=== PATIENT | female | born 1935 | race Caucasian/White ===

== ENCOUNTER → 2016-05-24 | Outpatient (CLI) | payer BC ==
[~2016-05-24] MED LIST: ALL100 PO; ASPCH81; ATEN-173 PO; GABA-112 PO; HYDR-3419 PO; HYDR-5688 PO; HYDR12.55 PO; LEVO75TA PO; LEVO88TA3 PO; LSX20 PO; MULT-506 PO; PRAV20TA PO; TEMA30CA4 PO
[2016-05-24 17:35] LABS: HEMATOCRIT 37.2 % (37-47); MEAN CELL VOLUME 94.4 fL (80-100); MEAN CORPUSCULAR HEMOGLOBIN 30.5 pg (25-34); MEAN CORPUSCULAR HGB CONC 32.3 g/dl (32-36); MEAN PLATELET VOLUME 9.6 fL (7.4-10.4); PLATELET COUNT 269 K/uL (130-400); RED BLOOD COUNT 3.94 M/uL (4.2-5.4); WHITE BLOOD COUNT 13.67 K/uL (4.8-10.8)
[2016-05-24 18:07] LABS: BLOOD UREA NITROGEN 38 mg/dl (7-18); BUN/CREATININE RATIO 21.3 (10-20); CALCIUM 10.9 mg/dl (8.5-10.1); CARBON DIOXIDE 27 mmol/L (21-32); CHLORIDE 104 mmol/L (98-107); GLUCOSE 96 mg/dl (70-99); MAGNESIUM 1.8 mg/dl (1.8-2.4); POTASSIUM 4.3 mmol/L (3.5-5.1); SODIUM 141 mmol/L (136-145)
[2016-05-24 18:16] LABS: BASO % 0.3 %; BASO ABS # 0.04 K/uL (0-0.2); COMPLETE YES; EOS % 1.6 %; IG% 0.2 %; LYMPH % 49.5 %; LYMPH ABS # 6.76 K/uL (1.2-3.4); MONO % 5.9 %; NEUT % 42.5 %
== END | disposition home or self-care (01) ==
LOC: C.LAB1850 16:54
PROVIDERS: ATTEND Internal Medicine
DX: E78.00 Pure hypercholesterolemia, unspecified (principal)

== ENCOUNTER → 2016-09-23 | Outpatient (CLI) | payer BC ==
[~2016-09-23] MED LIST changes: -LEVO75TA PO; +MAGN1CAP2
[2016-09-23 15:41] LABS: BASO % 0.4 %; BASO ABS # 0.05 K/uL (0-0.2); COMPLETE YES; HEMATOCRIT 38.8 % (37-47); IG% 0.2 %; LYMPH % 35.3 %; LYMPH ABS # 4.24 K/uL (1.2-3.4); MEAN CELL VOLUME 93.9 fL (80-100); MEAN CORPUSCULAR HEMOGLOBIN 29.1 pg (25-34); MEAN CORPUSCULAR HGB CONC 30.9 g/dl (32-36); MEAN PLATELET VOLUME 9.3 fL (7.4-10.4); MONO % 6.5 %; NEUT % 54.6 %; PLATELET COUNT 319 K/uL (130-400); RED BLOOD COUNT 4.13 M/uL (4.2-5.4); WHITE BLOOD COUNT 12.02 K/uL (4.8-10.8)
[2016-09-23 16:01] LABS: BLOOD UREA NITROGEN 33 mg/dl (7-18); CARBON DIOXIDE 30 mmol/L (21-32); CHLORIDE 104 mmol/L (98-107); GLUCOSE 133 mg/dl (70-99); MAGNESIUM 1.7 mg/dl (1.8-2.4); POTASSIUM 4.1 mmol/L (3.5-5.1); SODIUM 141 mmol/L (136-145)
[2016-09-23 16:05] LABS: CALCIUM 11.3 mg/dl (8.5-10.1)
== END | disposition home or self-care (01) ==
LOC: C.LAB1850 14:15
PROVIDERS: ATTEND Internal Medicine
DX: D72.820 Lymphocytosis (symptomatic) (principal)

== ENCOUNTER → 2017-01-11 | Outpatient (CLI) | payer BC ==
[~2017-01-11] MED LIST changes: -HYDR-3419 PO
[2017-01-11 15:34] LABS: BASO % 0.4 %; BASO ABS # 0.05 K/uL (0-0.2); COMPLETE YES; HEMATOCRIT 35.4 % (37-47); IG% 0.4 %; LYMPH % 31.7 %; LYMPH ABS # 4.53 K/uL (1.2-3.4); MEAN CELL VOLUME 95.4 fL (80-100); MEAN CORPUSCULAR HEMOGLOBIN 30.2 pg (25-34); MEAN CORPUSCULAR HGB CONC 31.6 g/dl (32-36); MEAN PLATELET VOLUME 9.4 fL (7.4-10.4); MONO % 6.2 %; NEUT % 56.3 %; PLATELET COUNT 349 K/uL (130-400); RED BLOOD COUNT 3.71 M/uL (4.2-5.4); WHITE BLOOD COUNT 14.28 K/uL (4.8-10.8)
[2017-01-11 15:56] LABS: BLOOD UREA NITROGEN 22 mg/dl (7-18); BUN/CREATININE RATIO 12.8 (10-20); CALCIUM 10.8 mg/dl (8.5-10.1); CARBON DIOXIDE 31 mmol/L (21-32); CHLORIDE 104 mmol/L (98-107); GLUCOSE 114 mg/dl (70-99); MAGNESIUM 1.4 mg/dl (1.8-2.4); SODIUM 142 mmol/L (136-145)
== END | disposition home or self-care (01) ==
LOC: C.LAB1850 14:40
PROVIDERS: ATTEND Physician Assistant
DX: N18.9 Chronic kidney disease, unspecified (principal)

== ENCOUNTER → 2017-04-14 | Outpatient (CLI) | payer BC ==
[~2017-04-14] MED LIST changes: -HYDR12.55 PO
[2017-04-14 16:22] LABS: BASO % 0.4 %; BASO ABS # 0.04 K/uL (0-0.2); COMPLETE YES; EOS % 2.2 %; HEMATOCRIT 35.9 % (37-47); IG% 0.3 %; LYMPH % 30.4 %; LYMPH ABS # 3.35 K/uL (1.2-3.4); MEAN CORPUSCULAR HEMOGLOBIN 30.2 pg (25-34); MEAN CORPUSCULAR HGB CONC 31.5 g/dl (32-36); MEAN PLATELET VOLUME 9.4 fL (7.4-10.4); MONO % 6.9 %; NEUT % 59.8 %; PLATELET COUNT 318 K/uL (130-400); RED BLOOD COUNT 3.74 M/uL (4.2-5.4); WHITE BLOOD COUNT 11.03 K/uL (4.8-10.8)
[2017-04-14 16:35] LABS: BLOOD UREA NITROGEN 31 mg/dl (7-18); BUN/CREATININE RATIO 17.6 (10-20); CALCIUM 10.9 mg/dl (8.5-10.1); CARBON DIOXIDE 32 mmol/L (21-32); CHLORIDE 104 mmol/L (98-107); CREATININE 1.74 mg/dl (0.60-1.20); GLUCOSE 166 mg/dl (70-99); MAGNESIUM 1.7 mg/dl (1.8-2.4); POTASSIUM 3.7 mmol/L (3.5-5.1); SODIUM 139 mmol/L (136-145)
[2017-04-15 06:22] LABS: ESTIMATED AVERAGE GLUCOSE 105 mg/dl; HA1C FLAG Normal (Normal)
--- NOTE | 2017-04-21 10:22 | CODING QUERY MEDICAL NECESSITY ---
SUPPORTING DIAGNOSIS NEEDED Dr. Landaverde, A supporting diagnosis is required for the test/procedure performed on this patient in order for us to be reimbursed by the patient's insurance. Please provide a supporting diagnosis for the following test/procedure listed below next to the test name along with your signature. *If there is no additional diagnosis for this patient that would support the following test/procedure please document that below next to the test/procedure. Test(s)/Procedure(s) that require a supporting diagnosis: * [id number] GLYCATED HEMOGLOBIN DIAGNOSIS: DATE OF SERVICE: 04/14/17 Provider Signature: Date: Thank you [facility] Information Management Once completed, please kindly fax back to [phone] For questions please call [phone]
== END | disposition home or self-care (01) ==
LOC: C.LAB1850 14:51
PROVIDERS: ATTEND Internal Medicine
DX: E03.9 Hypothyroidism, unspecified (principal); E78.00 Pure hypercholesterolemia, unspecified; E74.39 Other disorders of intestinal carbohydrate absorption

== ENCOUNTER → 2017-12-13 | Outpatient (CLI) | payer BC ==
[~2017-12-13] MED LIST changes: +CRDCD/180 PO; -GABA-112 PO; +HYDR12.56 PO; +LISI-725 PO; -MAGN1CAP2; +MIRT15TA2 PO; +NRN600 PO; +SACC250C11 PO
[2017-12-13 14:33] LABS: BASO % 0.5 %; EOS % 4.9 %; HEMATOCRIT 33.8 % (37-47); HEMOGLOBIN 10.9 g/dL (12.0-16.0); LYMPH % 30.5 %; LYMPH ABS # 3.12 K/uL (1.2-3.4); MEAN CELL VOLUME 90.9 fL (80-100); MEAN CORPUSCULAR HEMOGLOBIN 29.3 pg (25-34); MEAN CORPUSCULAR HGB CONC 32.2 g/dl (32-36); MEAN PLATELET VOLUME 9.5 fL (7.4-10.4); MONO % 5.1 %; MONO ABS # 0.52 K/uL (0.11-0.59); NEUT % 58.7 %; NEUT ABS # 6.02 K/uL (1.4-6.5); PLATELET COUNT 293 K/uL (130-400); RED CELL DISTRIBUTION WIDTH CV 14.4 % (11.5-14.5); RED CELL DISTRIBUTION WIDTH SD 47.6 fL (36.4-46.3); WHITE BLOOD COUNT 10.24 K/uL (4.8-10.8)
[2017-12-13 14:34] LABS: BASO ABS # 0.05 K/uL (0-0.2); IG# 0.03 K/uL (0.00-0.02)
[2017-12-13 15:14] LABS: BLOOD UREA NITROGEN 31 mg/dl (7-18); CARBON DIOXIDE 28 mmol/L (21-32); CREATININE 1.47 mg/dl (0.60-1.20); GLUCOSE 84 mg/dl (70-99); POTASSIUM 4.1 mmol/L (3.5-5.1); SODIUM 135 mmol/L (136-145)
== END | disposition home or self-care (01) ==
LOC: C.LAB1850 13:41
PROVIDERS: ATTEND Internal Medicine
DX: E78.00 Pure hypercholesterolemia, unspecified (principal)

== ENCOUNTER 2020-06-30 20:46 | Inpatient (IN) ==
[2020-06-30 22:37] LABS: Basophils # (auto) 0.03 K/uL (0-0.2); Basophils % (auto) 0.3 %; Eosinophils # (auto) 0.12 K/uL (0-0.5); Hematocrit (blood only) 39.2 % (37-47); Hemoglobin 12.9 g/dL (12.0-16.0); Immature Granulocytes # (auto) 0.03 K/uL (0.00-0.02); Immature Granulocytes % (auto) 0.3 %; Lymphocytes # (auto) 4.62 K/uL (1.2-3.4); Lymphocytes % (auto) 39.6 %; Mean Corpuscular Hemoglobin 29.3 pg (25-34); Mean Corpuscular Hgb Conc 32.9 g/dL (32-36); Mean Corpuscular Volume 89.1 fL (80-100); Mean Platelet Volume 8.9 fL (7.4-10.4); Monocytes # (auto) 0.66 K/uL (0.11-0.59); Monocytes % (auto) 5.7 %; Neutrophils # (auto) 6.22 K/uL (1.4-6.5); Neutrophils % (auto) 53.1 %; Platelet Count 327 K/uL (130-400); RDW Coefficient of Variation 13.9 % (11.5-14.5); RDW Standard Deviation 45.6 fL (36.4-46.3); White Blood Count 11.68 K/uL (4.8-10.8)
[2020-06-30 22:56] LABS: BUN Creatinine Ratio 14.3 (10-20); Calcium 13.8 mg/dl (8.5-10.1); Creatinine Clr Calc Pharmacy 21.2 ml/min; Est GFR (African American) 29.4; Est GFR (Non-African American) 25.4; Potassium 3.5 mmol/L (3.5-5.1)
[2020-06-30 22:58] LABS: Bilirubin,Total 0.7 mg/dl (0.2-1); Globulin 3.9 gm/dl (2.5-4.0); Total Protein 7.9 gm/dl (6.4-8.2)
--- NOTE | 2020-07-01 03:12 | Emergency Department Note ---
ED Visit Note Physician Evaluation Note: I have personally evaluated and examined this patient. I agree with assessment and plan of Daisy Garcia PA-C. 85 yr old female worsening abdominal pains and nausea. Has been followed for hyperCa recently though today much increased. Mild hypoxia while sleeping, likely DAVID. Hospitalist in to evaluate and manage further. Dylan Franklin MD
[2020-07-01] MEDS ORDERED: TEMAZEPAM 15 MG CAPSULE PO STA (03:33)
[2020-07-01 04:23] LABS: Magnesium 1.8 mg/dl (1.8-2.4); Thyroid Stimulating Hormone 6.22 uIu/ml (0.300-4.500)
[2020-07-01] MEDS ORDERED: PAMIDRONATE DISODIUM 60 MG in SODIUM CHLORIDE 0.9% 1000ML 1,000 ML IV STA (05:44)
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
[2020-07-01] MEDS ORDERED: METOPROLOL TARTRATE 1 MG/ML VIAL IV PRN (06:26)
--- NOTE | 2020-07-01 08:49 | CT Scan Report ---
ABDOMEN AND PELVIS CT WITHOUT CONTRAST CT DOSE: 314.20 mGy.cm HISTORY: lower abdominal pain, nausea TECHNIQUE: Multiaxial CT images of the abdomen and pelvis were performed without contrast. A dose lo wering technique was utilized adhering to the principles of ALARA. COMPARISON STUDY: Abdomen and pelvis CT 04/28/2020. FINDINGS: Visualized portions of the lower chest demonstrate posttraumatic/postsurgical findings with in the right chest wall. No pneumatosis, free air or portal venous gas is present. Evaluation of the abdomen and pelvis is suboptimal on this unenhanced examination. The previously described lesion with in the upper pole of the right kidney measures above water attenuation. This is suboptimally assessed on this unenhanced exam but demonstrated enhancement on prior contrast enhanced CT of October 31, 2019. This lesion measures 1.8 x 1.4 cm.. A 1 cm hypodense lesion within lower pole of the left kidney like ly reflects a cyst. There is no hydronephrosis. Unenhanced images of liver, spleen, adrenal glands an d pancreas are unremarkable with exception of pancreatic glandular atrophy. There are gallstones with in the gallbladder without evidence for acute cholecystitis. Postoperative findings from a partial co lectomy are noted. There is a large amount stool within remaining portions of the colon. There is min imal stool within the rectum. There is no evidence for a bowel obstruction. There is no lymphadenopat hy. There is no ascites. Moderate dextroscoliosis of the lower thoracic and lumbar spine is noted. No acute fracture or suspicious lesion is identified within visualized skeletal structures. Best seen i mage 352 there is an 8 mm nodule within the left posterior bladder. This concerning for a urothelial lesion. IMPRESSION: 1. Redemonstration of a 1.8 cm lesion within the upper pole of the right kidney. This likely reflects a renal cell carcinoma. Although suboptimally assessed on this unenhanced exam, this demonstrated en hancement on prior contrast enhanced CT. 2. Status post partial colectomy. No bowel obstruction. Large amount of stool within remaining portio ns of the colon. 3. Cholelithiasis. No evidence for acute cholecystitis. 4. There is an 8 mm nodule within the left posterior bladder abutting the bladder wall. This is fermín rning for a urothelial malignancy. Urology consultation recommended. ACT 112: Positive. There are findings on this exam that require communication between the performing entity and the patient following Patient Test Result Information Act ([place] Act 112) guidelines. Electronically signed by: Grayson Prater M.D. 07/01/2020 8:48 AM
[2020-07-01] MEDS ORDERED: POLYETHYLENE (MIRALAX) 17 GM PACK PO PRN (10:01)
[2020-07-01] MEDS: SODIUM CHLORIDE 0.9% 1000ML 1,000 ML IV SCH ×2 (10:46→20:44)
[2020-07-01] MEDS: TAPENTADOL HCL ER 50 MG TABCR PO SCH ×2 (10:46→22:33)
--- NOTE | 2020-07-01 10:49 | Electrocardiogram Report ---
Test Reason : Blood Pressure : / mmHG Vent. Rate : 098 BPM Atrial Rate : 098 BPM P-R Int : 198 ms QRS Dur : 134 ms QT Int : 388 ms P-R-T Axes : 078 -52 081 degrees QTc Int : 495 ms Poor data quality, interpretation may be adversely affected Normal sinus rhythm Right bundle branch block Left anterior fascicular block Left ventricular hypertrophy with repolarization abnormality Abnormal ECG When compared with ECG of 22-MAR-2008 15:47, TN interval has decreased Vent. rate has increased BY 39 BPM (RBBB and left anterior fascicular block) is now Present Confirmed by John Paul Chavez ([id number]) on 07/01/2020 10:49:26 AM Referred By: REFERRED SELF Confirmed By:John Paul Chavez
[2020-07-01] MEDS: ENOXAPARIN INJ 30 MG/0.3 ML SYR SQ SCH (12:17)
[2020-07-01] MEDS: LEVOTHYROXINE SODIUM 75 MCG TABLET PO SCH (12:18)
[2020-07-01] MEDS: ADVANCED PROBIOTIC 1250 MG CAPSULE PO SCH ×2 (12:18→20:39)
[2020-07-01] MEDS: ACETAMINOPHEN 325 MG TAB PO PRN (12:18)
[2020-07-01 12:36] LABS: BUN Creatinine Ratio 13.4 (10-20); Calcium 11.7 mg/dl (8.5-10.1); Creatinine Clr Calc Pharmacy 21.4 ml/min; Est GFR (African American) 29.8; Est GFR (Non-African American) 25.8; Potassium 3.8 mmol/L (3.5-5.1)
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
[2020-07-01] MEDS: ASPIRIN 81 MG ECTAB PO SCH (20:38)
[2020-07-01] MEDS: GABAPENTIN 600 MG TAB PO SCH (20:38)
[2020-07-01] MEDS: PRAVASTATIN SOD 20 MG TAB PO SCH (20:39)
[2020-07-01] MEDS: TEMAZEPAM 15 MG CAPSULE PO SCH (20:43)
[2020-07-02] MEDS: ACETAMINOPHEN 325 MG TAB PO PRN (00:36)
[2020-07-02] MEDS: LEVOTHYROXINE SODIUM 75 MCG TABLET PO SCH (06:29)
[2020-07-02 07:15] LABS: Hematocrit (blood only) 28.1 % (37-47); Hemoglobin 9.1 g/dL (12.0-16.0); Mean Corpuscular Hemoglobin 29.2 pg (25-34); Mean Corpuscular Hgb Conc 32.4 g/dL (32-36); Mean Corpuscular Volume 90.1 fL (80-100); Mean Platelet Volume 8.9 fL (7.4-10.4); Platelet Count 234 K/uL (130-400); RDW Coefficient of Variation 14.7 % (11.5-14.5); RDW Standard Deviation 48.2 fL (36.4-46.3); Red Blood Count 3.12 M/uL (4.2-5.4); White Blood Count 6.17 K/uL (4.8-10.8)
[2020-07-02 07:29] LABS: Albumin Level 2.6 gm/dl (3.4-5.0); BUN Creatinine Ratio 15.7 (10-20); Creatinine Clr Calc Pharmacy 22.3 ml/min; Est GFR (African American) 31.3; Magnesium 1.4 mg/dl (1.8-2.4)
[2020-07-02] MEDS: ADVANCED PROBIOTIC 1250 MG CAPSULE PO SCH ×2 (07:35→20:19)
[2020-07-02 07:39] LABS: Bilirubin,Total 0.3 mg/dl (0.2-1); Globulin 2.6 gm/dl (2.5-4.0); Phosphorus 2.2 mg/dl (2.5-4.9); Total Protein 5.2 gm/dl (6.4-8.2)
[2020-07-02] MEDS: SODIUM CHLORIDE 0.9% 1000ML 1,000 ML IV SCH (08:00)
[2020-07-02 08:36] LABS: Basophils # (auto) 0.03 K/uL (0-0.2); Basophils % (auto) 0.5 %; Eosinophils # (auto) 0.25 K/uL (0-0.5); Eosinophils % (auto) 4.1 %; Immature Granulocytes # (auto) 0.01 K/uL (0.00-0.02); Immature Granulocytes % (auto) 0.2 %; Lymphocytes # (auto) 2.61 K/uL (1.2-3.4); Lymphocytes % (auto) 42.3 %; Monocytes # (auto) 0.51 K/uL (0.11-0.59); Monocytes % (auto) 8.3 %; Neutrophils # (auto) 2.76 K/uL (1.4-6.5); Neutrophils % (auto) 44.6 %
[2020-07-02] MEDS: POLYETHYLENE (MIRALAX) 17 GM PACK PO SCH ×2 (09:18→20:19)
[2020-07-02] MEDS: ENOXAPARIN INJ 30 MG/0.3 ML SYR SQ SCH (10:38)
[2020-07-02] MEDS: TAPENTADOL HCL ER 50 MG TABCR PO SCH ×2 (10:38→20:18)
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
[2020-07-02 12:35] LABS: Appearance Urine Clear (Clear); Bacteria Urine Automated Negative (Negative); Bilirubin Urine Negative (Negative); Blood Urine Negative (Negative); Color Urine Yellow; Epithelial Cell Urine Auto >30 /lpf (0-5); Glucose Urine UA Negative (Negative); Ketones Urine Negative (Negative); Leukocyte Esterase Urine 1+ (Negative); Nitrite Urine Negative (Negative); Protein Urine Negative (Negative); RBC Urine Automated 0-4 /hpf (0-4); Specific Gravity Urine 1.009 (1.000-1.030); Urobilinogen Urine Negative (Negative)
--- NOTE | 2020-07-02 16:14 | Electrocardiogram Report ---
Test Reason : Blood Pressure : / mmHG Vent. Rate : 058 BPM Atrial Rate : 058 BPM P-R Int : 184 ms QRS Dur : 138 ms QT Int : 450 ms P-R-T Axes : 063 -43 -27 degrees QTc Int : 441 ms Sinus bradycardia Left axis deviation Right bundle branch block Minimal voltage criteria for LVH, may be normal variant T-wave inversion in Inferior leads Abnormal ECG When compared with ECG of 30-JUN-2020 20:53, Vent. rate has decreased BY 40 BPM T wave inversion now evident in Inferior leads QT has shortened Confirmed by John Paul Chavez ([id number]) on 07/02/2020 4:14:28 PM Referred By: REFERRED SELF Confirmed By:John Paul Chavez
[2020-07-02] MEDS: TEMAZEPAM 15 MG CAPSULE PO SCH (20:19)
[2020-07-02] MEDS: ASPIRIN 81 MG ECTAB PO SCH (20:19)
[2020-07-02] MEDS: GABAPENTIN 600 MG TAB PO SCH (20:19)
[2020-07-02] MEDS: PRAVASTATIN SOD 20 MG TAB PO SCH (20:20)
[2020-07-03] MEDS: LEVOTHYROXINE SODIUM 75 MCG TABLET PO SCH (05:48)
[2020-07-03 06:50] LABS: Basophils # (auto) 0.02 K/uL (0-0.2); Basophils % (auto) 0.3 %; Eosinophils # (auto) 0.28 K/uL (0-0.5); Eosinophils % (auto) 3.7 %; Hematocrit (blood only) 30.8 % (37-47); Hemoglobin 9.9 g/dL (12.0-16.0); Immature Granulocytes # (auto) 0.01 K/uL (0.00-0.02); Immature Granulocytes % (auto) 0.1 %; Lymphocytes # (auto) 3.37 K/uL (1.2-3.4); Mean Corpuscular Hemoglobin 28.6 pg (25-34); Mean Corpuscular Hgb Conc 32.1 g/dL (32-36); Mean Platelet Volume 8.8 fL (7.4-10.4); Monocytes # (auto) 0.66 K/uL (0.11-0.59); Monocytes % (auto) 8.6 %; Neutrophils # (auto) 3.32 K/uL (1.4-6.5); Neutrophils % (auto) 43.3 %; Platelet Count 257 K/uL (130-400); RDW Coefficient of Variation 14.4 % (11.5-14.5); Red Blood Count 3.46 M/uL (4.2-5.4); White Blood Count 7.66 K/uL (4.8-10.8)
[2020-07-03 07:24] LABS: Albumin Level 2.9 gm/dl (3.4-5.0); Calcium 10.4 mg/dl (8.5-10.1); Creatinine Clr Calc Pharmacy 24.9 ml/min; Est GFR (African American) 35.8; Est GFR (Non-African American) 30.9; Magnesium 1.4 mg/dl (1.8-2.4)
[2020-07-03 07:27] LABS: Bilirubin,Total 0.3 mg/dl (0.2-1); Phosphorus 1.8 mg/dl (2.5-4.9); Total Protein 5.9 gm/dl (6.4-8.2)
[2020-07-03] MEDS: ADVANCED PROBIOTIC 1250 MG CAPSULE PO SCH ×2 (08:11→20:25)
[2020-07-03] MEDS: POLYETHYLENE (MIRALAX) 17 GM PACK PO SCH ×2 (08:12→08:13)
[2020-07-03] MEDS: TAPENTADOL HCL ER 50 MG TABCR PO SCH ×2 (08:40→20:24)
[2020-07-03] MEDS: ENOXAPARIN INJ 30 MG/0.3 ML SYR SQ SCH (11:35)
[2020-07-03] MEDS: DICLOFENAC SOD 1% GEL 100 GM TUBE EXT PRN ×2 (11:35→22:53)
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
[2020-07-03] MEDS: ACETAMINOPHEN 325 MG TAB PO PRN ×2 (15:33→23:29)
--- NOTE | 2020-07-03 16:39 | Electrocardiogram Report ---
Test Reason : Blood Pressure : / mmHG Vent. Rate : 066 BPM Atrial Rate : 066 BPM P-R Int : 180 ms QRS Dur : 134 ms QT Int : 430 ms P-R-T Axes : 086 -55 -32 degrees QTc Int : 450 ms Sinus rhythm with occasional Premature ventricular complexes Right bundle branch block Left anterior fascicular block Abnormal ECG When compared with ECG of 02-JUL-2020 07:18, Premature ventricular complexes are now Present Confirmed by John Paul Chavez ([id number]) on 07/03/2020 4:38:35 PM Referred By: REFERRED SELF Confirmed By:John Paul Chavez
[2020-07-03] MEDS ORDERED: diphenhydrAMINE Capsule 25 MG CAP PO ONE (20:09)
[2020-07-03] MEDS ORDERED: ONDANSETRON INJ 2 MG/ML 2 ML VIAL IV STA (20:09)
[2020-07-03] MEDS: TEMAZEPAM 15 MG CAPSULE PO SCH (20:23)
[2020-07-03] MEDS: ASPIRIN 81 MG ECTAB PO SCH (20:25)
[2020-07-03] MEDS: PRAVASTATIN SOD 20 MG TAB PO SCH (20:25)
[2020-07-03] MEDS: GABAPENTIN 600 MG TAB PO SCH (20:25)
[2020-07-04] MEDS: LEVOTHYROXINE SODIUM 75 MCG TABLET PO SCH (05:59)
[2020-07-04 06:50] LABS: Hematocrit (blood only) 30.6 % (37-47); Hemoglobin 9.9 g/dL (12.0-16.0); Mean Corpuscular Hemoglobin 28.8 pg (25-34); Mean Corpuscular Hgb Conc 32.4 g/dL (32-36); Mean Platelet Volume 8.6 fL (7.4-10.4); Platelet Count 229 K/uL (130-400); RDW Coefficient of Variation 14.2 % (11.5-14.5); RDW Standard Deviation 46.1 fL (36.4-46.3); Red Blood Count 3.44 M/uL (4.2-5.4); White Blood Count 6.69 K/uL (4.8-10.8)
[2020-07-04] MEDS: DICLOFENAC SOD 1% GEL 100 GM TUBE EXT PRN (07:16)
[2020-07-04] MEDS: ADVANCED PROBIOTIC 1250 MG CAPSULE PO SCH (07:17)
[2020-07-04 07:27] LABS: Albumin Level 2.8 gm/dl (3.4-5.0); BUN Creatinine Ratio 13.7 (10-20); Calcium 9.7 mg/dl (8.5-10.1); Creatinine Clr Calc Pharmacy 22.3 ml/min; Est GFR (African American) 31.3; Magnesium 1.5 mg/dl (1.8-2.4); Potassium 3.6 mmol/L (3.5-5.1)
[2020-07-04 07:32] LABS: Bilirubin,Total 0.3 mg/dl (0.2-1); Globulin 2.9 gm/dl (2.5-4.0); Phosphorus 2.1 mg/dl (2.5-4.9); Total Protein 5.7 gm/dl (6.4-8.2)
[2020-07-04 08:02] LABS: Basophils # (auto) 0.03 K/uL (0-0.2); Basophils % (auto) 0.4 %; Eosinophils # (auto) 0.19 K/uL (0-0.5); Eosinophils % (auto) 2.8 %; Immature Granulocytes # (auto) 0.01 K/uL (0.00-0.02); Immature Granulocytes % (auto) 0.1 %; Lymphocytes # (auto) 3.38 K/uL (1.2-3.4); Lymphocytes % (auto) 50.5 %; Monocytes # (auto) 0.58 K/uL (0.11-0.59); Monocytes % (auto) 8.7 %; Neutrophils % (auto) 37.5 %
[2020-07-04] MEDS: TAPENTADOL HCL ER 50 MG TABCR PO SCH (08:32)
[2020-07-04] MEDS: POLYETHYLENE (MIRALAX) 17 GM PACK PO SCH (08:33)
[2020-07-04] MEDS: MAGNESIUM SULFATE / D5W 1 GM/100 ML BAG IV SCH ×2 (09:09→11:12)
[2020-07-04] MEDS: ENOXAPARIN INJ 30 MG/0.3 ML SYR SQ SCH (11:12)
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
--- NOTE | 2020-07-11 07:01 | Coding Query ---
PRESSURE ULCER DOCUMENTATION To promote full compliance with coding requirements relating to patient care, physician participation is requested in all cases of acid maker uncertainty. Please assist us with the question(s) below: Please specify the known or suspected type by placing an "X" within the parenthesis (x). A pressure ulcer of the MIDBACK (several ulcers) were documented , If possible, please check the box that provides the specific stage of the pressure ulcer ( ) Stage I (x ) Stage II ( ) Stage III ( ) Stage IV ( ) Unstageable ( ) Unable to determine Was the pressure ulcer present on admission? Please check the appropriate box for the pressure ulcer: (x ) Present on admission ( ) Not present on admission ( ) Unable to be clinically determined Thank you JAYLEN Goldman [facility]
== END 2020-07-04 14:28 | DRG 687 ==
LOC: ED 20:46 → SUATTDRO 07-01 06:08 → 2N 07-01 06:08

== ENCOUNTER 2023-04-15 17:22 | Inpatient (IN) ==
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
[2023-04-15] MEDS ORDERED: CYCLOBENZAPRINE HCL 10 MG TAB PO STA (18:06)
--- NOTE | 2023-04-15 18:27 | XRay Report ---
XR shoulder RT min 2V routine CLINICAL HISTORY: With Y view - pain with ? Dislocation TECHNIQUE: 3 views of the right shoulder were obtained. Comparison: None available at the time of this dictation. FINDINGS: Exam is limited by overlying radiodensity. Anterior shoulder dislocation is seen. Degenerative change s are seen in the glenohumeral joint. The overlying soft tissues are unremarkable. Old healed rib fra ctures with orthopedic hardware noted including displaced screws. IMPRESSION: Findings are compatible with anterior shoulder dislocation. ACT 112: Negative or not required by law. Electronically signed by: Pedro Vance M.D. 04/15/2023 6:26 PM
[2023-04-15] MEDS ORDERED: fentaNYL citrate PF 100 MCG/2 ML VIAL IV STA ×3 (18:51→19:29)
--- NOTE | 2023-04-15 19:57 | Emergency Department Note ---
ED Visit Note Physician Evaluation Note: Patient was seen in conjunction with the midlevel provider. Please see the midlevel provider note for full details of the patient's visit. I have personally evaluated and examined this patient. Patient presented to the ED with a dislocation of the right shoulder. This appears anterior on review of x-ray imaging. This has been a chronic issue for the patient. I was asked to assist with the dislocation reduction following several attempts by the physician legal administrative assistant, on my evaluation the patient was given a dose of IV fentanyl and gentle external rotation of the right upper extremity was applied with adduction of the right upper extremity with successful reduction of the dislocation. X-ray imaging confirms anatomic alignment status post reduction attempt by myself per my interpretation of the x-ray. Patient states her pain is much improved and range of motion is improved and pain-free at this point. Patient was placed in an arm sling, she does have issues with recurrent dislocations and unfortunately I do not feel that she is able to again utilize her walker with her right upper extremity without being at risk for recurrent dislocation. This is primarily how she ambulates at her assisted living facility and following discussion with family decision was made to admit the patient to the medicine service for PT services and possible placement. Please see the physician legal administrative assistant note for full details. I agree with assessment and plan of HALEY Campos, DO Right shoulder dislocation reduction: -Verbal consent was obtained from the patient -Patient was given a 25 mcg dose of fentanyl via IV -With the right upper extremity adducted to the patient's body in a seated position gentle external rotation was applied with the elbow bent to 90 degrees with satisfactory reduction of the anterior shoulder dislocation -Patient's pain was improved following this procedure, x-ray imaging per my interpretation confirms anatomic alignment of the humeral head -Patient was placed in an arm sling -Patient tolerated the procedure well .
[2023-04-15] MEDS ORDERED: SODIUM CHLORIDE 0.9% 500 ML IV ONE (20:40)
[2023-04-15 21:11] LABS: Basophils # (auto) 0.06 K/uL (0.00-0.20); Basophils % (auto) 0.4 %; Eosinophils # (auto) 0.07 K/uL (0.00-0.50); Eosinophils % (auto) 0.5 %; Hematocrit (blood only) 35.6 % (37.0-47.0); Hemoglobin 11.5 g/dl (12.0-16.0); Immature Granulocytes # (auto) 0.07 K/uL (0.01-0.20); Immature Granulocytes % (auto) 0.5 %; Lymphocytes # (auto) 4.13 K/uL (1.20-3.40); Lymphocytes % (auto) 28.1 %; Mean Corpuscular Hemoglobin 28.6 pg (25.0-34.0); Mean Corpuscular Hgb Conc 32.3 g/dL (32.0-36.0); Mean Corpuscular Volume 88.6 fL (80.0-100.0); Mean Platelet Volume 8.8 fL (9.4-12.4); Monocytes # (auto) 1.32 K/uL (0.11-0.59); Neutrophils # (auto) 9.04 K/uL (1.40-6.50); Neutrophils % (auto) 61.5 %; Platelet Count 370 K/uL (130-400); RDW Coefficient of Variation 14.4 % (11.5-14.5); RDW Standard Deviation 46.5 fL (36.4-46.3); Red Blood Count 4.02 M/uL (4.20-5.40); White Blood Count 14.69 K/ul (4.8-10.8)
[2023-04-15 21:28] LABS: Alanine Aminotransferase 6 U/L (7-52); Albumin Globulin Ratio 1.3 (0.9-2); Alkaline Phosphatase 121 U/L (34-104); Anion Gap 9 (3-11); Aspartate Aminotransferase 15 U/L (13-39); Bilirubin,Total 0.6 mg/dl (0.2-1.0); Blood Urea Nitrogen 31 mg/dl (6-23); Calcium 9.7 mg/dl (8.6-10.3); Carbon Dioxide 30 mmol/L (21-32); Chloride 99 mmol/L (98-107); Est GFR (African American) 43.7 ml/min; Est GFR (Non-African American) 37.7 ml/min; Globulin 3.1 gm/dl (2.5-4.0); Glucose 97 mg/dl (70-99(Fasting)); Sodium 138 mmol/L (136-145); Total Protein 7.1 gm/dl (6.0-8.3)
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
[2023-04-15] MEDS ORDERED: NALOXONE HCL 0.4 MG/1 ML VIAL/CARP IV PRN (23:15)
[2023-04-15] MEDS ORDERED: POLYETHYLENE (MIRALAX) 17 GM PACK PO PRN (23:15)
[2023-04-15] MEDS ORDERED: ONDANSETRON INJ 2 MG/ML 2 ML VIAL IV PRN (23:15)
[2023-04-15] MEDS ORDERED: Patient's HEIGHT &/or WEIGHT Needed ONE (23:30)
[2023-04-15] MEDS ORDERED: ARTIFICIAL TEARS OP PRN (23:31)
[2023-04-16] MEDS: TAPENTADOL HCL ER 50 MG TABCR PO SCH ×3 (00:05→20:36)
[2023-04-16] MEDS ORDERED: TEMAZEPAM 15 MG CAPSULE PO ONE (00:06)
[2023-04-16] MEDS ORDERED: GABAPENTIN 600 MG TAB PO STA (00:06)
[2023-04-16] MEDS: LEVOTHYROXINE SODIUM 112 MCG TABLET PO SCH (05:32)
--- NOTE | 2023-04-16 07:55 | Hospitalist Progress Note ---
Date of Service April 16, 2023 Assessment & Plan (1) Anterior dislocation of right shoulder: (2) Ambulatory dysfunction: (3) Rotator cuff arthropathy of left shoulder: (4) Rotator cuff arthropathy of right shoulder: (5) Depression: (6) CKD (chronic kidney disease): (7) Peripheral neuropathy: (8) Hypertension: (9) Foot drop, right: Plan 87-year-old female with a past medical history including myofascial pain, rotator cuff arthropathy of both shoulders, anxiety, depression, SI joint pain, CKD, hyperparathyroidism, hypercholesterolemia, hypothyroidism, right foot drop with use of brace, chronic need for walker, and hypertension presenting with right anterior shoulder dislocation. # Anterior dislocation of right shoulder/bilateral rotator cuff arthropathy/chronic right foot drop with use of brace/severe peripheral neuropathy: Anterior shoulder dislocation s/p reduction in ED Continue sling Patient was not accepted back to her current living facility due to inability to walk with the required use of a walker due to her right arm being in a sling PT/OT assessment, will likely need inpatient rehab Acetaminophen 650 mg by mouth every 6 hours as needed for mild pain or fever Continue gabapentin 400 mg in the morning and 600 mg at bedtime Continue Nucynta ER 100 mg p.o. every 12 hours #CKD: Baseline creatinine has been 1.5-1.9, creatinine on admission 1.29 Follow serial laboratories #HLD: Continue statin #Hypothyroidism: Continue levothyroxine #Hyperparathyroidism: Continue Cinacalcet #Depression/insomnia: Continue mirtazapine and temazepam Med/Surg FEN: DM2 VTE ppx: SCDs Admission and Anticipated Discharge Date Admission Date: April 15, 2023 Supervising Physician Co-Signing Physician Notes I personally examined the patient and verified all madrid points of history and exam, discussed case, and agree with decision making with Dr Felder Shoulder pain under control now. Notes that she feels she will likely have to go somewhere to do rehab given that her personal care will be very unlikely to take care of her in her current state. Case management aware. Vitals noted, in general she is awake and alert pleasant no distress. HEENT normocephalic atraumatic mucous membranes moist. Breathing unlabored no accessory muscle use good effort. Arm in a sling. No focal neurodeficits. Right shoulder dislocationreduced by ER. PT/OT eval and treat, I wonder if there would be any kind of bracing that might help reduce risk of recurrent dislocation after she is healed Weakness/ambulatory dysfunctionPT/OT eval and treathighly likely to not be able to return immediately to personal care without doing some rehab first. DVT proph - ambulation Subjective 87-year-old female with a past medical history including myofascial pain, rotator cuff arthropathy of both shoulders, anxiety, depression, SI joint pain, CKD, hyperparathyroidism, hypercholesterolemia, hypothyroidism, right foot drop with use of brace, chronic need for walker, and hypertension presenting with right anterior shoulder dislocation. Patient evaluated at bedside this morning, notes that she has had minimal pain since her shoulder was reduced in the ED. Patient voices understanding that, due to impaired mobility secondary to shoulder dislocation, she will need to be placed at a different facility. Also states that she has had multiple right shoulder dislocations, is usually able to reduce on her own but could not this time. Review of Systems Review of Systems: as per HPI Physical Exam Physical Exam: General: Alert and oriented. No acute distress Cardiac: Regular rate and rhythm, no murmurs appreciated Respiratory: Lungs clear to auscultation bilaterally, No increased work of breathing Extremities: RUE placed in a sling Results & Data Results & Data Vital Signs (Past 12 Hours) Vital Signs Temp Pulse Resp BP Pulse Ox O2 Del Method 04/16/23 07:14 36.5 C 83 16 92/57 L 94 Room Air 04/15/23 23:17 Room Air 04/15/23 23:17 36.7 C 103 H 18 158/84 H 94 Room Air 04/15/23 21:00 80 16 168/100 H 98 Room Air Resident Activity Tracking Resident Involvement: Resident Care Provided Care Provided: Adult Hospital Medicine (1) Anterior dislocation of right shoulder Encounter type: initial encounter Qualified Code(s): S43.014A - Anterior dislocation of right humerus, initial encounter (6) CKD (chronic kidney disease) Chronic kidney disease stage: stage 3 (moderate) Chronic kidney disease stage 3 subtype: unspecified whether 3a or 3b Qualified Code(s): N18.30 - Chronic kidney disease, stage 3 unspecified (7) Peripheral neuropathy Peripheral neuropathy type: idiopathic neuropathy, unspecified Qualified Code(s): G60.9 - Hereditary and idiopathic neuropathy, unspecified
--- NOTE | 2023-04-16 08:12 | XRay Report ---
XR shoulder RT min 2V routine CLINICAL HISTORY: With Y view - post reduction COMPARISON: Right shoulder radiographs performed earlier today. FINDINGS: Alignment of the right glenohumeral joint is anatomic post reduction. Mild residual anteri or subluxation. Irregularity and apparent bony fragmentation of the acromion is unchanged. Sclerosis and irregularity right humeral head is also unchanged. Multiple old right-sided rib fractures are pre sent. Old right-sided rib fractures are noted with internal fixation hardware. Severe degenerative ch anges within the right shoulder are present. IMPRESSION: 1. Anatomic alignment of the right glenohumeral joint post reduction. 2. Severe degenerative changes within the right shoulder. Irregularity and sclerosis of the right hum eral head which is chronic. 3. Several bone fragments adjacent to the acromion and coracoid process. These are age indeterminate. ACT 112: Negative or not required by law. Electronically signed by: Seth Hunt M.D. 04/16/2023 8:10 AM
[2023-04-16] MEDS: ADVANCED PROBIOTIC 1250 MG CAPSULE PO SCH ×2 (08:18→20:30)
[2023-04-16] MEDS: amLODIPine BESYLATE 5 MG TAB PO SCH (08:19)
[2023-04-16] MEDS: CETIRIZINE HCL 10 MG TABLET PO SCH (08:20)
[2023-04-16] MEDS: FUROSEMIDE 20 MG TAB PO SCH (08:20)
[2023-04-16] MEDS: CINACALCET HCL 30 MG TAB PO SCH (08:20)
[2023-04-16] MEDS: GABAPENTIN 400 MG CAP PO SCH (08:20)
[2023-04-16] MEDS: ACETAMINOPHEN 325 MG TAB PO PRN ×2 (10:13→16:08)
[2023-04-16] MEDS: POLYETHYLENE (MIRALAX) 17 GM PACK PO SCH (12:25)
[2023-04-16] MEDS: MULTIVITAMIN TAB PO SCH (12:26)
--- NOTE | 2023-04-16 17:52 | Billing Data ---
Date of Service April 16, 2023 Coding Level of Care Code 92012 SUB INP/OBS CARE
[2023-04-16] MEDS: GABAPENTIN 600 MG TAB PO SCH (20:30)
[2023-04-16] MEDS: PRAVASTATIN SOD 20 MG TAB PO SCH (20:30)
[2023-04-16] MEDS: MIRTAZAPINE TAB 15 MG TAB PO SCH (20:30)
[2023-04-16] MEDS: TEMAZEPAM 15 MG CAPSULE PO SCH (20:35)
[2023-04-17] MEDS: LEVOTHYROXINE SODIUM 112 MCG TABLET PO SCH (05:36)
[2023-04-17 06:41] LABS: Basophils # (auto) 0.08 K/uL (0.00-0.20); Basophils % (auto) 0.8 %; Eosinophils # (auto) 0.38 K/uL (0.00-0.50); Eosinophils % (auto) 3.8 %; Hematocrit (blood only) 31.2 % (37.0-47.0); Hemoglobin 9.8 g/dl (12.0-16.0); Immature Granulocytes # (auto) 0.05 K/uL (0.01-0.20); Immature Granulocytes % (auto) 0.5 %; Lymphocytes # (auto) 4.03 K/uL (1.20-3.40); Lymphocytes % (auto) 40.2 %; Mean Corpuscular Hemoglobin 28.4 pg (25.0-34.0); Mean Corpuscular Hgb Conc 31.4 g/dL (32.0-36.0); Mean Corpuscular Volume 90.4 fL (80.0-100.0); Mean Platelet Volume 9.1 fL (9.4-12.4); Monocytes # (auto) 1.12 K/uL (0.11-0.59); Monocytes % (auto) 11.2 %; Neutrophils # (auto) 4.37 K/uL (1.40-6.50); Neutrophils % (auto) 43.5 %; Platelet Count 348 K/uL (130-400); RDW Coefficient of Variation 14.6 % (11.5-14.5); RDW Standard Deviation 48.9 fL (36.4-46.3); Red Blood Count 3.45 M/uL (4.20-5.40); White Blood Count 10.03 K/ul (4.8-10.8)
[2023-04-17 07:07] LABS: Albumin Globulin Ratio 1.3 (0.9-2); Albumin Level 3.4 gm/dl (3.4-5.0); BUN Creatinine Ratio 29.3 (10-20); Bilirubin,Total 0.5 mg/dl (0.2-1.0); Calcium 9.3 mg/dl (8.6-10.3); Creatinine Clr Calc Pharmacy 24.7 ml/min; Est GFR (African American) 36.4 ml/min; Est GFR (Non-African American) 31.4 ml/min; Globulin 2.7 gm/dl (2.5-4.0); Magnesium 1.6 mg/dl (1.7-2.4); Potassium 4.6 mmol/L (3.5-5.1); Total Protein 6.1 gm/dl (6.0-8.3)
[2023-04-17] MEDS ORDERED: MAGNESIUM SULFATE / D5W 1 GM/100 ML BAG IV ONE (07:45)
[2023-04-17] MEDS: ADVANCED PROBIOTIC 1250 MG CAPSULE PO SCH ×2 (08:37→20:29)
[2023-04-17] MEDS: amLODIPine BESYLATE 5 MG TAB PO SCH (08:38)
[2023-04-17] MEDS: FUROSEMIDE 20 MG TAB PO SCH (08:38)
[2023-04-17] MEDS: CETIRIZINE HCL 10 MG TABLET PO SCH (08:38)
[2023-04-17] MEDS: GABAPENTIN 400 MG CAP PO SCH (08:38)
[2023-04-17] MEDS: CINACALCET HCL 30 MG TAB PO SCH (08:39)
[2023-04-17] MEDS: TAPENTADOL HCL ER 50 MG TABCR PO SCH ×2 (08:42→20:30)
[2023-04-17] MEDS: ACETAMINOPHEN 325 MG TAB PO PRN (08:48)
[2023-04-17] MEDS: POLYETHYLENE (MIRALAX) 17 GM PACK PO SCH (09:16)
--- NOTE | 2023-04-17 09:37 | Hospitalist Progress Note ---
Date of Service April 17, 2023 Assessment & Plan (1) Anterior dislocation of right shoulder: (2) Ambulatory dysfunction: (3) Rotator cuff arthropathy of left shoulder: (4) Rotator cuff arthropathy of right shoulder: (5) Depression: (6) CKD (chronic kidney disease): (7) Peripheral neuropathy: (8) Hypertension: (9) Foot drop, right: Plan 87 yo female with PMHx of myofascial pain, rotator cuff arthropathy of both shoulders, anxiety, depression, SI joint pain, CKD, hyperparathyroidism, hypercholesterolemia, hypothyroidism, right foot drop with use of brace, chronic need for walker, and hypertension presenting with right anterior shoulder dislocation. # Anterior dislocation of right shoulder/bilateral rotator cuff arthropathy/chronic right foot drop with use of brace/severe peripheral neuropathy: Anterior shoulder dislocation s/p reduction in ED - cont. sling Patient was not accepted back to her current living facility due to inability to walk with the required use of a walker due to her right arm being in a sling PT/OT: recommend SNF/rehab Pain control: acetaminophen, gabapentin, Nucynta Added voltaren topical prn for additional support She follows with orthopedics as an outpatient for chronic shoulder issues - next appt. Apr 27. #CKD: Baseline creatinine 1.5-1.9, Cr on admission 1.29 #HLD: Continue statin #Hypothyroidism: Continue levothyroxine #Hyperparathyroidism: Continue Cinacalcet #Depression/insomnia: Continue mirtazapine and temazepam FEN: DM2 VTE ppx: Heparin SQ Dispo: Med Surg; pending placement Admission and Anticipated Discharge Date Admission Date: April 16, 2023 Supervising Physician Co-Signing Physician Notes I personally examined the patient and verified all madrid points of history and exam, discussed case, and agree with decision making with Dr Ludwig Shoulder pain waxes and wanes. Required topical lidocaine. Continues to note that she feels she will likely have to go somewhere to do rehab given that her personal care will be very unlikely to take care of her in her current state. Case management aware. Vitals noted, in general she is awake and alert pleasant no distress. HEENT normocephalic atraumatic mucous membranes moist. Breathing unlabored no accessory muscle use good effort. Arm in a sling. No focal neurodeficits. Right shoulder dislocationreduced by ER. PT/OT eval and treat, I wonder if there would be any kind of bracing that might help reduce risk of recurrent dislocation after she is healed Weakness/ambulatory dysfunctionPT/OT eval and treathighly likely to not be a ble to return immediately to personal care without doing some rehab first. DVT proph - ambulation Subjective Patient seen at beside. Doing relatively better from a pain stand point than yesterday. Some mild R scapular pain and actually endorses more pain in her L shoulder which is chronic. Denies fever, fatigue, cp, sob, abd pain, dysuria. Review of Systems Review of Systems: All systems reviewed & are unremarkable except as noted in HPI & below Physical Exam Physical Exam: Constitutional: in no acute distress, pleasant and normal affect, intact memory. AOx3. Vitals as above. HEENT: No scleral injection or discharge.Moist mucous membranes. Lungs: CTAB, no wheezes/rales/rhonchi Cardiac: RRR.2+ distal peripheral pulses. Abdomen: Soft, nontender, and nondistended.No guarding. MSK: RUE in sling, shoulder without hematoma. Results & Data Results & Data Vital Signs (Past 12 Hours) Vital Signs Temp Pulse Resp BP Pulse Ox O2 Del Method 04/17/23 07:13 36.8 C 70 16 119/70 93 Room Air Laboratory Results 04/17/23 Range/Units 05:21 WBC 10.03 (4.8-10.8) K/ul RBC 3.45 L (4.20-5.40) M/uL Hgb 9.8 L (12.0-16.0) g/dl Hct 31.2 L (37.0-47.0) % MCV 90.4 (80.0-100.0) fL MCH 28.4 (25.0-34.0) pg MCHC 31.4 L (32.0-36.0) g/dL RDW Std Deviation 48.9 H (36.4-46.3) fL RDW Coeff of Tad 14.6 H (11.5-14.5) % Plt Count 348 (130-400) K/uL MPV 9.1 L (9.4-12.4) fL Immature Gran % (Auto) 0.5 % Neut % (Auto) 43.5 % Lymph % (Auto) 40.2 % [place] % (Auto) 11.2 % Eos % (Auto) 3.8 % Baso % (Auto) 0.8 % Neut # (Auto) 4.37 (1.40-6.50) K/uL Lymph # (Auto) 4.03 H (1.20-3.40) K/uL [place] # (Auto) 1.12 H (0.11-0.59) K/uL Eos # (Auto) 0.38 (0.00-0.50) K/uL Baso # (Auto) 0.08 (0.00-0.20) K/uL Immature Gran # (Auto) 0.05 (0.01-0.20) K/uL Sodium 138 (136-145) mmol/L Potassium 4.6 (3.5-5.1) mmol/L Chloride 101 (98-107) mmol/L Carbon Dioxide 31 (21-32) mmol/L Anion Gap 6 (3-11) BUN 44 H (6-23) mg/dl Creatinine 1.50 H (0.6-1.2) mg/dl Est Cr Clr Drug Dosing 24.7 ml/min Est GFR ( Amer) 36.4 ml/min Est GFR (Non-Af Amer) 31.4 ml/min BUN/Creatinine Ratio 29.3 H (10-20) Glucose 91 (70-99(Fasting)) mg/dl Calcium 9.3 (8.6-10.3) mg/dl Magnesium 1.6 L (1.7-2.4) mg/dl Total Bilirubin 0.5 (0.2-1.0) mg/dl AST 13 (13-39) U/L ALT 5 L (7-52) U/L Alkaline Phosphatase 93 (34-104) U/L Total Protein 6.1 (6.0-8.3) gm/dl Albumin 3.4 (3.4-5.0) gm/dl Globulin 2.7 (2.5-4.0) gm/dl Albumin/Globulin Ratio 1.3 (0.9-2) Resident Activity Tracking Resident Involvement: Resident Care Provided Care Provided: Adult Hospital Medicine (1) Anterior dislocation of right shoulder Encounter type: initial encounter Qualified Code(s): S43.014A - Anterior dislocation of right humerus, initial encounter (6) CKD (chronic kidney disease) Chronic kidney disease stage: stage 3 (moderate) Chronic kidney disease stage 3 subtype: unspecified whether 3a or 3b Qualified Code(s): N18.30 - Chronic kidney disease, stage 3 unspecified (7) Peripheral neuropathy Peripheral neuropathy type: idiopathic neuropathy, unspecified Qualified Code(s): G60.9 - Hereditary and idiopathic neuropathy, unspecified
[2023-04-17] MEDS: DICLOFENAC SOD 1% GEL 100 GM TUBE EXT SCH ×2 (11:25→17:09)
[2023-04-17] MEDS: MULTIVITAMIN TAB PO SCH (12:02)
[2023-04-17] MEDS: HEPARIN SOD 5,000 UNIT/0.5 ML VIAL SQ SCH (20:28)
[2023-04-17] MEDS: GABAPENTIN 600 MG TAB PO SCH (20:28)
[2023-04-17] MEDS: [UNRECOGNIZED DRUG - REMARK] SCH (20:29)
[2023-04-17] MEDS: PRAVASTATIN SOD 20 MG TAB PO SCH (20:30)
[2023-04-17] MEDS: MIRTAZAPINE TAB 15 MG TAB PO SCH (20:30)
[2023-04-17] MEDS: TEMAZEPAM 15 MG CAPSULE PO SCH (20:33)
[2023-04-18] MEDS: DICLOFENAC SOD 1% GEL 100 GM TUBE EXT SCH ×4 (00:20→17:06)
[2023-04-18] MEDS: ACETAMINOPHEN 325 MG TAB PO PRN ×2 (03:23→12:10)
[2023-04-18] MEDS: LEVOTHYROXINE SODIUM 112 MCG TABLET PO SCH (05:32)
[2023-04-18 06:51] LABS: Basophils # (auto) 0.07 K/uL (0.00-0.20); Basophils % (auto) 0.7 %; Eosinophils # (auto) 0.33 K/uL (0.00-0.50); Eosinophils % (auto) 3.2 %; Hemoglobin 9.5 g/dl (12.0-16.0); Immature Granulocytes # (auto) 0.06 K/uL (0.01-0.20); Immature Granulocytes % (auto) 0.6 %; Lymphocytes # (auto) 3.87 K/uL (1.20-3.40); Lymphocytes % (auto) 37.6 %; Mean Corpuscular Hemoglobin 28.7 pg (25.0-34.0); Mean Corpuscular Hgb Conc 32.8 g/dL (32.0-36.0); Mean Corpuscular Volume 87.6 fL (80.0-100.0); Monocytes % (auto) 9.7 %; Neutrophils # (auto) 4.95 K/uL (1.40-6.50); Neutrophils % (auto) 48.2 %; Platelet Count 321 K/uL (130-400); RDW Coefficient of Variation 14.5 % (11.5-14.5); RDW Standard Deviation 46.5 fL (36.4-46.3); Red Blood Count 3.31 M/uL (4.20-5.40); White Blood Count 10.28 K/ul (4.8-10.8)
[2023-04-18 07:06] LABS: BUN Creatinine Ratio 28.1 (10-20); Calcium 9.1 mg/dl (8.6-10.3); Creatinine Clr Calc Pharmacy 22.2 ml/min; Est GFR (Non-African American) 27.6 ml/min; Magnesium 1.8 mg/dl (1.7-2.4); Potassium 3.8 mmol/L (3.5-5.1)
[2023-04-18] MEDS: POLYETHYLENE (MIRALAX) 17 GM PACK PO SCH (08:40)
[2023-04-18] MEDS: amLODIPine BESYLATE 5 MG TAB PO SCH (08:41)
[2023-04-18] MEDS: [UNRECOGNIZED DRUG - REMARK] SCH ×3 (08:41→19:54)
[2023-04-18] MEDS: CETIRIZINE HCL 10 MG TABLET PO SCH (08:41)
[2023-04-18] MEDS: CINACALCET HCL 30 MG TAB PO SCH (08:42)
[2023-04-18] MEDS: HEPARIN SOD 5,000 UNIT/0.5 ML VIAL SQ SCH ×2 (08:42→19:54)
[2023-04-18] MEDS: GABAPENTIN 400 MG CAP PO SCH (08:42)
[2023-04-18] MEDS: FUROSEMIDE 20 MG TAB PO SCH (08:42)
[2023-04-18] MEDS: ADVANCED PROBIOTIC 1250 MG CAPSULE PO SCH ×2 (08:42→19:54)
[2023-04-18] MEDS: TAPENTADOL HCL ER 50 MG TABCR PO SCH ×2 (08:48→19:55)
--- NOTE | 2023-04-18 10:07 | Hospitalist Progress Note ---
Date of Service April 18, 2023 Assessment & Plan (1) Anterior dislocation of right shoulder: (2) Ambulatory dysfunction: (3) Rotator cuff arthropathy of left shoulder: (4) Rotator cuff arthropathy of right shoulder: (5) Depression: (6) CKD (chronic kidney disease): (7) Peripheral neuropathy: (8) Hypertension: (9) Foot drop, right: Plan 87 yo female with PMHx of myofascial pain, rotator cuff arthropathy of both shoulders, anxiety, depression, SI joint pain, CKD, hyperparathyroidism, hypercholesterolemia, hypothyroidism, right foot drop with use of brace, chronic need for walker, and hypertension presenting with right anterior shoulder dislocation. # Anterior dislocation of right shoulder/bilateral rotator cuff arthropathy/chronic right foot drop with use of brace/severe peripheral neuropathy: Anterior shoulder dislocation s/p reduction in ED - cont. sling Patient was not accepted back to her current living facility due to inability to walk with the required use of a walker due to her right arm being in a sling PT/OT: recommend SNF/rehab Pain control: acetaminophen, gabapentin, Nucynta Added voltaren topical prn for additional support Follows with orthopedics as an outpatient for chronic shoulder issues - next appt. Apr 27. #CKD: Baseline creatinine 1.5-1.9, within range. #HLD: Continue statin #Hypothyroidism: Continue levothyroxine #Hyperparathyroidism: Continue Cinacalcet #Depression/insomnia: Continue mirtazapine and temazepam Code: Full FEN: DM2 VTE ppx: Heparin SQ Dispo: Med Surg; pending placement Admission and Anticipated Discharge Date Admission Date: April 16, 2023 Supervising Physician Co-Signing Physician Notes Attending Physician Supervision Note: I independently interviewed and examined the patient and verified the [place] history and physical, reviewed labs and image studies and agree with findings and care plan noted above. shoulder pain controlled with volatren gel. concerned if her shoulder will heal. Vitals noted, in general she is awake and alert pleasant no distress. HEENT normocephalic atraumatic mucous membranes moist. Breathing unlabored no accessory muscle use good effort. Arm in a sling. No focal neurodeficits. Right shoulder dislocationreduced by ER. PT/OT eval and treat. Will check with orthotics if there would be any kind of bracing that might help reduce risk of recurrent dislocation after she is healed Weakness/ambulatory dysfunctionPT/OT eval and treatfollow recommendation DVT proph - ambulation Subjective Patient seen at beside. No acute changes. Ashlyn roland helped with shoulder pains. Denies fever, fatigue, cp, sob, abd pain, dysuria. Review of Systems Review of Systems: All systems reviewed & are unremarkable except as noted in HPI & below Physical Exam Physical Exam: Constitutional: in no acute distress, pleasant and normal affect, intact memory. AOx3. Vitals as above. HEENT: No scleral injection or discharge.Moist mucous membranes. Lungs: CTAB, no wheezes/rales/rhonchi Cardiac: RRR.2+ distal peripheral pulses. Abdomen: Soft, nontender, and nondistended.No guarding. MSK: RUE in sling, shoulder without hematoma. Results & Data Results & Data Vital Signs (Past 12 Hours) Vital Signs Temp Pulse Resp BP Pulse Ox O2 Del Method 04/18/23 08:31 36.5 C 80 18 130/73 94 Room Air Laboratory Results 04/18/23 Range/Units 06:22 WBC 10.28 (4.8-10.8) K/ul RBC 3.31 L (4.20-5.40) M/uL Hgb 9.5 L (12.0-16.0) g/dl Hct 29.0 L (37.0-47.0) % MCV 87.6 (80.0-100.0) fL MCH 28.7 (25.0-34.0) pg MCHC 32.8 (32.0-36.0) g/dL RDW Std Deviation 46.5 H (36.4-46.3) fL RDW Coeff of Tad 14.5 (11.5-14.5) % Plt Count 321 (130-400) K/uL MPV 9.0 L (9.4-12.4) fL Immature Gran % (Auto) 0.6 % Neut % (Auto) 48.2 % Lymph % (Auto) 37.6 % Isabella % (Auto) 9.7 % Eos % (Auto) 3.2 % Baso % (Auto) 0.7 % Neut # (Auto) 4.95 (1.40-6.50) K/uL Lymph # (Auto) 3.87 H (1.20-3.40) K/uL Isabella # (Auto) 1.00 H (0.11-0.59) K/uL Eos # (Auto) 0.33 (0.00-0.50) K/uL Baso # (Auto) 0.07 (0.00-0.20) K/uL Immature Gran # (Auto) 0.06 (0.01-0.20) K/uL Sodium 137 (136-145) mmol/L Potassium 3.8 (3.5-5.1) mmol/L Chloride 102 (98-107) mmol/L Carbon Dioxide 28 (21-32) mmol/L Anion Gap 7 (3-11) BUN 47 H (6-23) mg/dl Creatinine 1.67 H (0.6-1.2) mg/dl Est Cr Clr Drug Dosing 22.2 ml/min Est GFR ( Amer) 32.0 ml/min Est GFR (Non-Af Amer) 27.6 ml/min BUN/Creatinine Ratio 28.1 H (10-20) Glucose 97 (70-99(Fasting)) mg/dl Calcium 9.1 (8.6-10.3) mg/dl Magnesium 1.8 (1.7-2.4) mg/dl Resident Activity Tracking Resident Involvement: Resident Care Provided Care Provided: Adult Hospital Medicine (1) Anterior dislocation of right shoulder Encounter type: initial encounter Qualified Code(s): S43.014A - Anterior dislocation of right humerus, initial encounter (6) CKD (chronic kidney disease) Chronic kidney disease stage: stage 3 (moderate) Chronic kidney disease stage 3 subtype: unspecified whether 3a or 3b Qualified Code(s): N18.30 - Chronic kidney disease, stage 3 unspecified (7) Peripheral neuropathy Peripheral neuropathy type: idiopathic neuropathy, unspecified Qualified Code(s): G60.9 - Hereditary and idiopathic neuropathy, unspecified
--- NOTE | 2023-04-18 10:22 | Billing Data ---
Date of Service April 17, 2023 Coding Level of Care Code 59072 SUB INP/OBS CARE
[2023-04-18] MEDS: MULTIVITAMIN TAB PO SCH (12:08)
[2023-04-18] MEDS: GABAPENTIN 600 MG TAB PO SCH (19:54)
[2023-04-18] MEDS: PRAVASTATIN SOD 20 MG TAB PO SCH (19:55)
[2023-04-18] MEDS: MIRTAZAPINE TAB 15 MG TAB PO SCH (19:55)
[2023-04-18] MEDS: TEMAZEPAM 15 MG CAPSULE PO SCH (19:57)
[2023-04-19] MEDS: DICLOFENAC SOD 1% GEL 100 GM TUBE EXT SCH ×5 (00:21→23:34)
[2023-04-19] MEDS: LEVOTHYROXINE SODIUM 112 MCG TABLET PO SCH (05:24)
--- NOTE | 2023-04-19 07:26 | Hospitalist Progress Note ---
Date of Service April 19, 2023 Assessment & Plan (1) Anterior dislocation of right shoulder: (2) Ambulatory dysfunction: (3) Rotator cuff arthropathy of left shoulder: (4) Rotator cuff arthropathy of right shoulder: (5) Depression: (6) CKD (chronic kidney disease): (7) Peripheral neuropathy: (8) Hypertension: (9) Foot drop, right: Plan 87 yo female with PMHx of myofascial pain, rotator cuff arthropathy of both shoulders, anxiety, depression, SI joint pain, CKD, hyperparathyroidism, hypercholesterolemia, hypothyroidism, right foot drop with use of brace, chronic need for walker, and hypertension presenting with right anterior shoulder dislocation. Anterior dislocation of right shoulder/bilateral rotator cuff arthropathy/chronic right foot drop with use of brace/severe peripheral neuropathy: Anterior shoulder dislocation s/p reduction in ED - cont. sling Patient was not accepted back to her current living facility due to inability to walk with the required use of a walker due to her right arm being in a sling PT/OT: recommend SNF/rehab Pain control: acetaminophen, gabapentin, Nucynta Added voltaren topical prn for additional support Follows with orthopedics as an outpatient for chronic shoulder issues - next appt. Apr 27. --- Continue pain control w/ Tylenol, Gabapentin, Nucynta, and topical Voltaren. SNF placement remains pending. Anticipate discharge tomorrow. CKD: Baseline creatinine 1.5-1.9, within range. HLD: Continue statin Hypothyroidism: Continue levothyroxine Hyperparathyroidism: Continue Cinacalcet Depression/insomnia: Continue mirtazapine and temazepam Code: Full FEN: Heart Healthy VTE ppx: Heparin SQ Dispo: Med Surg; pending placement Admission and Anticipated Discharge Date Admission Date: April 16, 2023 Supervising Physician Co-Signing Physician Notes Attending Physician Supervision Note: I independently interviewed and examined the patient and verified the [place] history and physical, reviewed labs and image studies and agree with findings and care plan noted above. felt sad in the morning but later in the day was motivated. pain better controlled had loose stool for 2 days. resolved today. Vitals noted, in general she is awake and alert pleasant no distress. HEENT normocephalic atraumatic mucous membranes moist. Breathing unlabored no accessory muscle use good effort. Arm in a sling. No focal neurodeficits. Right shoulder dislocationreduced by ER. PT/OT eval and treat. consider checking with orthotics if there would be any kind of bracing that might help reduce risk of recurrent dislocation after she is healed Weakness/ambulatory dysfunctionPT/OT eval and treatfollow recommendation DVT proph - ambulation Subjective 04/19: Patient comfortable in bedside chair w/o acute symptoms. Pain well controlled. Denies fevers, chills, fatigue, chest pain, or dyspnea. Review of Systems Review of Systems: as per HPI Physical Exam Physical Exam: Constitutional: in no acute distress, pleasant and normal affect, AOx3. HEENT: No scleral injection or discharge.Moist mucous membranes. Lungs: CTAB, no wheezes/rales/rhonchi, non-labored Cardiac: RRR.No MRG, 2+ distal peripheral pulses. Abdomen: Soft, nontender, and nondistended.No guarding. MSK: RUE in sling, shoulder without hematoma, radial pulses intact. Results & Data Results & Data Vital Signs (Past 12 Hours) Vital Signs Temp Pulse Resp BP Pulse Ox O2 Del Method 04/18/23 19:54 Room Air 04/18/23 19:39 36.7 C 83 14 138/82 94 Room Air Resident Activity Tracking Resident Involvement: Resident Care Provided Care Provided: Adult Hospital Medicine (1) Anterior dislocation of right shoulder Encounter type: initial encounter Qualified Code(s): S43.014A - Anterior dislocation of right humerus, initial encounter (6) CKD (chronic kidney disease) Chronic kidney disease stage: stage 3 (moderate) Chronic kidney disease stage 3 subtype: unspecified whether 3a or 3b Qualified Code(s): N18.30 - Chronic kidney disease, stage 3 unspecified (7) Peripheral neuropathy Peripheral neuropathy type: idiopathic neuropathy, unspecified Qualified Code(s): G60.9 - Hereditary and idiopathic neuropathy, unspecified
[2023-04-19] MEDS: POLYETHYLENE (MIRALAX) 17 GM PACK PO SCH (08:29)
[2023-04-19] MEDS: [UNRECOGNIZED DRUG - REMARK] SCH ×3 (08:29→20:37)
[2023-04-19] MEDS: amLODIPine BESYLATE 5 MG TAB PO SCH (08:30)
[2023-04-19] MEDS: TAPENTADOL HCL ER 50 MG TABCR PO SCH ×2 (08:32→20:41)
[2023-04-19] MEDS: HEPARIN SOD 5,000 UNIT/0.5 ML VIAL SQ SCH ×2 (08:32→20:37)
[2023-04-19] MEDS: ADVANCED PROBIOTIC 1250 MG CAPSULE PO SCH ×2 (08:32→20:38)
[2023-04-19] MEDS: CINACALCET HCL 30 MG TAB PO SCH (08:32)
[2023-04-19] MEDS: GABAPENTIN 400 MG CAP PO SCH (08:32)
[2023-04-19] MEDS: FUROSEMIDE 20 MG TAB PO SCH (08:32)
[2023-04-19] MEDS: CETIRIZINE HCL 10 MG TABLET PO SCH (08:32)
[2023-04-19] MEDS: MULTIVITAMIN TAB PO SCH (11:41)
[2023-04-19] MEDS: MIRTAZAPINE TAB 15 MG TAB PO SCH (20:37)
[2023-04-19] MEDS: GABAPENTIN 600 MG TAB PO SCH (20:37)
[2023-04-19] MEDS: PRAVASTATIN SOD 20 MG TAB PO SCH (20:38)
[2023-04-19] MEDS: TEMAZEPAM 15 MG CAPSULE PO SCH (20:41)
[2023-04-19 20:49] VITALS: O2SAT 94
[2023-04-20] MEDS: ACETAMINOPHEN 325 MG TAB PO PRN ×2 (03:44→13:43)
[2023-04-20] MEDS: LEVOTHYROXINE SODIUM 112 MCG TABLET PO SCH (06:08)
[2023-04-20] MEDS: DICLOFENAC SOD 1% GEL 100 GM TUBE EXT SCH ×2 (06:08→13:44)
[2023-04-20] MEDS: [UNRECOGNIZED DRUG - REMARK] SCH (06:08)
--- NOTE | 2023-04-20 07:28 | Discharge Summary ---
Date of Service April 20, 2023 Admission HPI Per Admitting Provider The patient is an 87-year-old female with a past medical history including myofascial pain, rotator cuff arthropathy of both shoulders, anxiety, depression, SI joint pain, CKD, hyperparathyroidism, hypercholesterolemia, hypothyroidism, right foot drop with use of brace, chronic need for walker, and hypertension. In the emergency department, the patient was found to have anterior dislocation of her right shoulder, and was reduced by the ED staff and she was placed in a sling. Because she has to use a walker for walking, and would not be able to grasp it with her right arm in a sling, the facility where she presently lives with not able to accept her back until she would be able to ambulate with her walker Admission Exam Per Admitting Provider The patient is awake, alert and oriented 3, well developed and well nourished, normocephalic and atraumatic, lying in bed and in no acute distress. HEENT--PERRL, EOMI, mucous membranes and oropharynx normal. Neck--supple. No JVD. No bruits. Thyroid normal, trachea midline, no adenopathy. Heart--normal S1 and S2. No murmurs, rubs or gallops. Lungs--clear bilaterally, no respiratory distress, no accessory muscle use. Abdomen--normal bowel sounds and soft. Nontender. Nondistended, no hernias or masses, no organomegaly. Extremities--no cyanosis or clubbing. No edema. Dermatologic--normal skin turgor, normal color, no abnormal lymph nodes, no rash. Neurologic--cranial nerves II through XII grossly intact. Rheumatologic--limited range of motion physical examination due to recent reduction of right shoulder, and right foot drop with brace Psychiatric--normal affect. Principal Diagnosis Shoulder Dislocation Ambulatory Dysfunction Discharge Exam Constitutional: in no acute distress, pleasant and normal affect, AOx3. HEENT: No scleral injection or discharge.Moist mucous membranes. Lungs: CTAB, no wheezes/rales/rhonchi, non-labored Cardiac: RRR.No MRG, 2+ distal peripheral pulses. Abdomen: Soft, nontender, and nondistended.No guarding. MSK: RUE in sling, shoulder without hematoma, radial pulses intact. Discharge Data Allergies Allergy/AdvReac Type Severity Reaction Status Date / Time adhesive Allergy Blister Verified 04/11/23 10:48 Consultations 04/15/23 21:42 ED Decision to Admit Stat Hospital Course (1) Anterior dislocation of right shoulder: (2) Ambulatory dysfunction: (3) Rotator cuff arthropathy of left shoulder: (4) Rotator cuff arthropathy of right shoulder: (5) Depression: (6) CKD (chronic kidney disease): (7) Peripheral neuropathy: (8) Hypertension: (9) Foot drop, right: Plan 87 yo female with PMHx of myofascial pain, rotator cuff arthropathy of both shoulders, anxiety, depression, SI joint pain, CKD, hyperparathyroidism, hypercholesterolemia, hypothyroidism, right foot drop with use of brace, chronic need for walker, and hypertension presenting with right anterior shoulder dislocation. Anterior dislocation of right shoulder/bilateral rotator cuff arthropathy/chronic right foot drop with use of brace/severe peripheral neuropathy: Anterior shoulder dislocation s/p reduction in ED - cont. sling Patient was not accepted back to her current living facility due to inability to walk with the required use of a walker due to her right arm being in a sling PT/OT: recommend SNF/rehab Pain control: acetaminophen, gabapentin, Nucynta Added voltaren topical prn for additional support Follows with orthopedics as an outpatient for chronic shoulder issues - next appt. Apr 27. --- Continue pain control w/ Tylenol, Gabapentin, Nucynta, and topical Voltaren. Discharge to [facility]. Daughter transporting. CKD: Baseline creatinine 1.5-1.9, within range. HLD: Continue statin Hypothyroidism: Continue levothyroxine Hyperparathyroidism: Continue Cinacalcet Depression/insomnia: Continue mirtazapine and temazepam Code: Full FEN: Heart Healthy VTE ppx: Heparin SQ Dispo: Med Surg; [facility] today Total Time Total Time Spent Total Time Spent (In Minutes): 20 minutes Discharge Plan Discharge Items Patient Disposition: Transfer Senior Living Fac Reason For Visit: RIGHT SHOULDER DISLOCATION Discharge Diagnosis: Right shoulder dislocation Ambulatory dysfunction Condition on Discharge: Good Activity: Per Instructions section Non-emergency contact: Primary Care Provider Call non-emergency contact if: your symptoms worsen and your pain is not controlled Follow-up/Referrals: Kady Hadley PA-C [Primary Care Provider] - Diet: Heart Healthy Addtl Attending Provider Instructions: For rehabilitation facility: 87 yo female with PMHx of myofascial pain, rotator cuff arthropathy of both shoulders, anxiety, depression, SI joint pain, CKD, hyperparathyroidism, hypercholesterolemia, hypothyroidism, right foot drop with use of brace, chronic need for walker, and hypertension presenting with right anterior shoulder dislocation. Anterior dislocation of right shoulder/bilateral rotator cuff arthropathy/chronic right foot drop with use of brace/severe peripheral neuropathy: Anterior shoulder dislocation s/p reduction in ED - cont. sling Patient was not accepted back to her current living facility due to inability to walk with the required use of a walker due to her right arm being in a sling PT/OT: recommend SNF/rehab Pain control: acetaminophen, gabapentin, Nucynta Added voltaren topical prn for additional support Follows with orthopedics as an outpatient for chronic shoulder issues - next appt. Apr 27. --- Continue pain control w/ Tylenol, Gabapentin, Nucynta, and topical Voltaren. SNF placement today. Anticipate discharge. CKD: Baseline creatinine 1.5-1.9, within range. HLD: Continue statin Hypothyroidism: Continue levothyroxine Hyperparathyroidism: Continue Cinacalcet Depression/insomnia: Continue mirtazapine and temazepam Rehab will need to call to refill home neuropathy medication, patient has bottle. Code: Full FEN: Heart Healthy VTE ppx: Heparin SQ inpt Dispo: Rehab For patient: Follow up with your PCP in 1-2 weeks following discharge. Pending Studies at Discharge: No Stand-Alone Forms: My [facility] [employer] Skilled Items Patient informed of condition?: Yes DNR: No Discharge Level of Care: Acute rehab Communicable Disease: No Discharge Prognosis: Stable Lines: None Urinary Catheter: No Medications and DC Order Prescriptions: New acetaminophen 325 mg Tablet 650 mg PO Q4H PRN (Reason: pain) 30 Days Qty: 30 0RF diclofenac sodium [Voltaren Arthritis Pain] 1 % Gel 2 g EXT Q6 30 Days Qty: 100 0RF Continued Acidophilus Capsule 2,000 mmu cells PO BID amlodipine 2.5 mg tablet 2.5 mg PO DAILY gabapentin 600 mg tablet 600 mg PO HS naloxone 4 mg/actuation spray,non-aerosol 1 spray intranasal Q3M PRN (Reason: opioid overdose) Qty: 2 1RF Rx Instructions: administer 1 dose into ONE nostril; alternate nostrils w each dose until assistance arrives levothyroxine 112 mcg tablet 112 mcg PO DAILY cetirizine [Zyrtec] 10 mg tablet 10 mg PO DAILY Qty: 90 3RF Systane Hydration (PF) 0.4-0.3 % drops 1 drp ophthalmic (eye) DAILY PRN (Reason: dry eye(s)) Qty: 10 3RF polyethylene glycol 3350 [Miralax] 17 gram/dose powder 17 g PO DAILY PRN (Reason: Constipation) Qty: 510 3RF ondansetron HCl 4 mg tablet 4 mg PO Q8H Qty: 30 0RF lisinopril 20 mg tablet 20 mg PO QAM Qty: 90 3RF acetaminophen [Tylenol] 325 mg capsule 650 mg PO BID Qty: 360 3RF gabapentin 400 mg capsule 400 mg PO QAM Qty: 30 5RF furosemide 20 mg tablet 20 mg PO DAILY Qty: 90 3RF multivitamin Tablet 1 tab PO 1200 Qty: 90 3RF temazepam 30 mg capsule 30 mg PO HS Qty: 30 0RF pravastatin 20 mg tablet 20 mg PO PM Qty: 90 3RF mirtazapine 15 mg tablet 15 mg PO HS Qty: 90 3RF cinacalcet [Sensipar] 30 mg tablet 30 mg PO DAILY Qty: 90 2RF Nucynta ER 100 mg tablet extended release 12 hr 100 mg PO Q12H Qty: 60 0RF Rx Instructions: ONGOING THERAPY Wheelchair (Manual) Device 1 ea .ROUTE .COMPLEX Qty: 1 0RF Rx Instructions: Transport chair Discharge Orders: Discharge Order (Routine); Ordered 04/20/23 Ordered By: Arnoldo Galeano Admission Data Admit Date/Time: 04/16/23 14:09 Attending Provider: Shukri Flores Admit Provider: Jeb Fitch Primary Care Provider: Kady Hadley Other Providers: Jeb Fitch; Bladimir Johnson Other Interventions: Discharge Summary Assessment (RN) Last Done: 04/20/23 13:29 Supervising Physician Co-Signing Physician Notes I also saw the patient confirmed [place] portions of the clinical history and physical exam. I agree with the impression and plan as noted in the resident documentation above. At the time of our late morning exam, the patient was without complaints. She is scheduled for transfer to inpatient rehabilitation later today. She still some soreness of the right shoulder (remains in a sling), but the overall pain seems to be improved. Right shoulder dislocation, status post reduction History of bilateral rotator cuff injury, right worse than left Weakness/amatory dysfunction Appreciate PT/OT evaluation and recommendations Patient follows with orthopedics as outpatient Will keep right arm in sling Physical therapy and subsequent outpatient orthopedic follow-up Additional per resident documentation Resident Activity Tracking Resident Involvement: Resident Care Provided Care Provided: Adult Hospital Medicine
[2023-04-20 08:05] VITALS: BP 133/75; PULSE 63; RESP 16; TEMP 97.9
[2023-04-20] MEDS: amLODIPine BESYLATE 5 MG TAB PO SCH (08:36)
[2023-04-20] MEDS: CETIRIZINE HCL 10 MG TABLET PO SCH (08:36)
[2023-04-20] MEDS: GABAPENTIN 400 MG CAP PO SCH (08:37)
[2023-04-20] MEDS: CINACALCET HCL 30 MG TAB PO SCH (08:37)
[2023-04-20] MEDS: ADVANCED PROBIOTIC 1250 MG CAPSULE PO SCH (08:37)
[2023-04-20] MEDS: HEPARIN SOD 5,000 UNIT/0.5 ML VIAL SQ SCH (08:38)
[2023-04-20] MEDS: POLYETHYLENE (MIRALAX) 17 GM PACK PO SCH (08:38)
[2023-04-20] MEDS: FUROSEMIDE 20 MG TAB PO SCH (08:38)
[2023-04-20] MEDS: TAPENTADOL HCL ER 50 MG TABCR PO SCH (08:44)
[2023-04-20] MEDS: MULTIVITAMIN TAB PO SCH (13:44)
== END 2023-04-20 14:06 | DRG 563 ==
LOC: ED 17:22 → 3N 17:22 → SUATTDRO 22:01 → 3N 22:40 → SUATTDRO 04-16 14:09 → 3N 04-20 01:21
DX: Z79.890 Hormone replacement therapy; F32.A Depression, unspecified; M24.411 Recurrent dislocation, right shoulder; E11.22 Type 2 diabetes mellitus with diabetic chronic kidney disease; E11.42 Type 2 diabetes mellitus with diabetic polyneuropathy; I12.9 Hypertensive chronic kidney disease with stage 1 through stage 4 chronic kidney disease, or unspecified chronic kidney disease; M75.101 Unspecified rotator cuff tear or rupture of right shoulder, not specified as traumatic; N18.30 Chronic kidney disease, stage 3 unspecified; E03.9 Hypothyroidism, unspecified; G47.00 Insomnia, unspecified; M21.371 Foot drop, right foot